=== PATIENT | female | born 1935 | race Caucasian/White ===

== ENCOUNTER → 2016-08-31 | Outpatient (CLI) | payer OTHER ==
[~2016-08-31] MED LIST: ACETAMINOPHEN325 MG PO; AMBIEN 5 MG TABL5 M1 PO; CAPOTEN 25MG TA25 MG PO; CLONAZEPAM 0.50.5 M1 PO; CLONAZEPAM 1 MG1 M1 PO; COLACE100 MG PO; HYDROCHLOROTHIA25 M1 PO; KLONOPIN0.5 MG PO; LIPITOR10 MG PO; MAG-AL PLUS XS30 ML PO; MOBIC15 MG PO; NORCO 10-325 T1 EACH PO; NORCO 5-325 TA1 EACH PO; NORVASC10 MG PO; NORVASC2.5 MG PO; TRAMADOL 50 MG50 MG PO; VITAMIN D3400 UNI1 PO; XARELTO10 MG PO
== END ==
LOC: ULTRA 09:12
DX: I70.213 Atherosclerosis of native arteries of extremities with intermittent claudication, bilateral legs (principal); R20.2 Paresthesia of skin; M25.539 Pain in unspecified wrist

== ENCOUNTER → 2017-01-21 | Outpatient (CLI) | payer OTHER | LOC: HYPER 01-20 09:33 | DX: R21 Rash and other nonspecific skin eruption (principal); I73.9 Peripheral vascular disease, unspecified; R60.0 Localized edema; I10 Essential (primary) hypertension; E78.00 Pure hypercholesterolemia, unspecified; Z87.891 Personal history of nicotine dependence ==

== ENCOUNTER → 2017-01-28 | Outpatient (CLI) | payer OTHER | LOC: HYPER 07:00 | DX: R21 Rash and other nonspecific skin eruption (principal); I73.9 Peripheral vascular disease, unspecified; B02.9 Zoster without complications; I10 Essential (primary) hypertension; E78.00 Pure hypercholesterolemia, unspecified; Z87.891 Personal history of nicotine dependence ==

== ENCOUNTER 2017-12-26 00:57 | Emergency (ER) | payer OTHER ==
[~2017-12-26] VITALS: Ht 170.2 cm; Wt 77.6 kg
[2017-12-26] MEDS ORDERED: ULTRAM 50MG TAB50 MG PO (02:24)
== END 2017-12-26 02:53 | disposition home or self-care (01) ==
LOC: ER 00:57
DX: S61.412A Laceration without foreign body of left hand, initial encounter (principal); S61.211A Laceration without foreign body of left index finger without damage to nail, initial encounter; I10 Essential (primary) hypertension; E78.00 Pure hypercholesterolemia, unspecified; F41.9 Anxiety disorder, unspecified; M19.90 Unspecified osteoarthritis, unspecified site; K21.9 Gastro-esophageal reflux disease without esophagitis; I73.9 Peripheral vascular disease, unspecified; Z96.652 Presence of left artificial knee joint; W01.0XXA Fall on same level from slipping, tripping and stumbling without subsequent striking against object, initial encounter; Y93.89 Activity, other specified; Y92.89 Other specified places as the place of occurrence of the external cause; Y99.8 Other external cause status

== ENCOUNTER 2018-05-15 14:29 | Emergency (ER) | payer OTHER ==
[~2018-05-15] VITALS: Ht 167.6 cm; Wt 72.6 kg
[~2018-05-15 14:29] MED LIST changes: +ULTRAM 50MG TAB50 MG PO
[2018-05-15 15:20] LABS: URINE BILIRUBIN NEGATIVE (Negative); URINE BLOOD 2+ (Negative); URINE CLARITY CLOUDY; URINE COLOR YELLOW; URINE GLUCOSE-RANDOM* NEGATIVE (Negative); URINE KETONES NEGATIVE (Negative); URINE LEUKOCYTES-REFLEX 3+ (Negative); URINE NITRITE-REFLEX NEGATIVE (Negative); URINE PROTEIN (DIPSTICK) 2+ (Negative); URINE SPECIFIC GRAVITY >= 1.030 (1.005-1.035); URINE UROBILINOGEN 0.2 E.U./dl (0.2-1.0)
[2018-05-15 15:35] LABS: BACTERIA-REFLEX 1-9 Few /HPF (None Seen); CASTS None Seen /LPF (None Seen); CRYSTALS None Seen /LPF (None Seen); SQUAMOUS None Seen /LPF (0-3); URINE RBC 3-10 Few /HPF (0-2); URINE WBC-REFLEX >25 Many /HPF (0-5); WBC CLUMPS Packed (None Seen)
[2018-05-15] MEDS ORDERED: CIPRO500 MG PO (15:51)
[2018-05-15] MEDS ORDERED: PHENAZOPYRIDIN200 M2 PO (15:51)
[2018-05-15] MEDS ORDERED: CYMBALTA30 MG PO (16:02)
[2018-05-15] MEDS ORDERED: NEURONTIN 300300 M1 PO (16:03)
[2018-05-15] MEDS ORDERED: HYDROXYCHLOROQ200 M1 PO (16:03)
[2018-05-15] MEDS ORDERED: CELLCEPT500 MG PO (16:04)
== END 2018-05-15 16:06 | disposition home or self-care (01) ==
LOC: ER 14:29
PROVIDERS: Physician Assistant
DX: N39.0 Urinary tract infection, site not specified (principal); I10 Essential (primary) hypertension; E78.00 Pure hypercholesterolemia, unspecified; F41.9 Anxiety disorder, unspecified; M19.90 Unspecified osteoarthritis, unspecified site; K21.9 Gastro-esophageal reflux disease without esophagitis; I73.9 Peripheral vascular disease, unspecified; E78.5 Hyperlipidemia, unspecified; Z96.652 Presence of left artificial knee joint; Z87.891 Personal history of nicotine dependence; Z90.710 Acquired absence of both cervix and uterus